=== PATIENT | female | born 1975 | race Caucasian/White ===

== ENCOUNTER 2023-06-09 15:20 | Outpatient (CLI) | payer BC | END 2023-06-09 15:21 | disposition home or self-care (01) | LOC: SCSRAD 15:20 | PROVIDERS: ATTEND Physician Assistant | DX: M47.22 Other spondylosis with radiculopathy, cervical region (principal) | CPT/HCPCS: 72040 ==

== ENCOUNTER 2023-07-21 19:27 | Inpatient (IN) | payer BC, SELFPAY ==
[2023-07-21] MEDS ORDERED: Ondansetron ODT 4 MG TAB PO PRN (19:49)
[2023-07-21] MEDS ORDERED: Acetaminophen 325 MG TAB PO PRN (19:49)
[2023-07-21 20:00] VITALS: BMI 24.5
[2023-07-21] MEDS: Morphine 4 MG/ML VIAL SLOW IVP PRN (20:04)
[2023-07-21] MEDS ORDERED: Dextrose 5% in Water 1,000 ML IV PRN (21:15)
[2023-07-21] MEDS ORDERED: Dextrose 50% Abboject 50 ML SYRINGE SLOW IVP PRN (21:15)
[2023-07-21] MEDS ORDERED: Glucagon 1 MG/ML KIT IM PRN (21:15)
[2023-07-21] MEDS: Ondansetron PF 4 MG/2 ML Vial IVP PRN (21:34)
[2023-07-21] MEDS: Ketorolac Tromethamine 30 MG/ML VIAL IVP PRN (22:59)
[2023-07-22] MEDS: Morphine 4 MG/ML VIAL SLOW IVP PRN ×6 (00:37→23:58)
[2023-07-22 01:11] LABS: #Basophils 0.1 thou/uL (0.0-0.2); #Eosinphils 0.4 thou/uL (0.0-0.7); #Monocytes 0.9 thou/uL (0.11-0.59); #Neutrophils 9.2 thou/uL (1.40-6.50); %Basophils 0.4 % (0.0-1.0); %Eosinophils 2.7 % (0.0-10.0); %Lymphocytes 18.6 % (21.0-51.0); %Monocytes 6.9 % (0.0-10.0); Hematocrit 39.2 % (36.0-47.0); Mean Corpuscular HGB CONC 33.2 g/dL (32.0-36.0); Mean Corpuscular Volume 96.6 fl (78.0-98.0); Platelet Count 278 10x3/uL (130-400); RBC Distribution Width 12.3 % (11.5-14.5); Red Blood Cell (RBC) Count 4.06 mill/uL (4.20-5.40)
[2023-07-22 01:33] LABS: Anion Gap 13 mmol/L (10-20); BUN (Urea Nitrogen) 11 mg/dL (7.0-18.7); Calc. Creatinine Clearance 98 mL/min (70-130); Calcium 8.6 mg/dL (7.8-10.44); Carbon Dioxide 26 mmol/L (22-29); Chloride 101 mmol/L (98-107); Estimated GFR 91; Glucose 111 mg/dL (70-105); Magnesium 1.9 mg/dL (1.6-2.6); Potassium 3.8 mmol/L (3.5-5.1); Sodium 136 mmol/L (136-145)
[2023-07-22] MEDS: Ketorolac Tromethamine 30 MG/ML VIAL IVP PRN (10:10)
[2023-07-22] MEDS: Ondansetron PF 4 MG/2 ML Vial IVP PRN (10:16)
[2023-07-22] MEDS ORDERED: BuPROPion XL 150 MG ER.TAB PO SCH (10:30)
[2023-07-22] MEDS ORDERED: Magnevist 469MG/ML 20 ML VIAL ONE (13:17)
[2023-07-22] MEDS: Cyclobenzaprine 10 MG TAB PO PRN ×2 (14:04→19:46)
[2023-07-22 14:16] LABS: ALT (SGPT) 12 U/L (8-55); AST (SGOT) 15 U/L (5-34); Albumin 4.1 g/dL (3.5-5.0); Alkaline Phosphatase 48 U/L (40-110); Anion Gap 11 mmol/L (10-20); BUN (Urea Nitrogen) 9 mg/dL (7.0-18.7); Bilirubin, Total 0.7 mg/dL (0.2-1.2); Calc. Creatinine Clearance 100 mL/min (70-130); Calcium 9.7 mg/dL (7.8-10.44); Carbon Dioxide 26 mmol/L (22-29); Chloride 99 mmol/L (98-107); Estimated GFR 94; Globulin 2.5 g/dL (2.4-3.5); Glucose 90 mg/dL (70-105); Potassium 4.3 mmol/L (3.5-5.1); Protein, Total 6.6 g/dL (6.0-8.3); Sodium 132 mmol/L (136-145)
[2023-07-22 14:18] LABS: Immunoglob - A (Total IgA) 187 mg/dL (65-421); Immunoglob - G (Total IgG) 727 mg/dL (552-1631); Immunoglob - M (Total IgM) 116 mg/dL (33-293)
[2023-07-22] MEDS ORDERED: Prochlorperazine 10 MG/2 ML VIAL IVP SCH (15:00)
[2023-07-22] MEDS ORDERED: Prochlorperazine Edisylate 10 MG in Sodium Chloride 0.9% 50 ML IVPB PRN (16:26)
[2023-07-22] MEDS: Gabapentin 300 MG CAP PO PRN (19:46)
[2023-07-23 03:51] LABS: #Eosinphils 0.4 thou/uL (0.0-0.7); #Monocytes 0.7 thou/uL (0.11-0.59); #Neutrophils 6.3 thou/uL (1.40-6.50); %Basophils 0.3 % (0.0-1.0); %Eosinophils 4.2 % (0.0-10.0); %Lymphocytes 20.8 % (21.0-51.0); %Monocytes 7.8 % (0.0-10.0); %Neutrophils 66.5 % (42.0-75.0); Hemoglobin 13.3 g/dL (12.0-16.0); Mean Corpuscular HGB CONC 33.3 g/dL (32.0-36.0); Mean Corpuscular Hemoglobin 32.3 pg (27.0-31.0); Mean Corpuscular Volume 97.1 fl (78.0-98.0); Mean Platelet Volume 8.2 fL (7.4-10.4); Platelet Count 291 10x3/uL (130-400); RBC Distribution Width 11.9 % (11.5-14.5); Red Blood Cell (RBC) Count 4.12 mill/uL (4.20-5.40); White Blood Cell (WBC) Count 9.4 10x3/uL (4.8-10.8)
[2023-07-23] MEDS: Morphine 4 MG/ML VIAL SLOW IVP PRN ×5 (03:58→19:02)
[2023-07-23 04:21] LABS: Anion Gap 11 mmol/L (10-20); BUN (Urea Nitrogen) 11 mg/dL (7.0-18.7); Calc. Creatinine Clearance 96 mL/min (70-130); Calcium 8.6 mg/dL (7.8-10.44); Carbon Dioxide 27 mmol/L (22-29); Chloride 100 mmol/L (98-107); Estimated GFR 90; Glucose 97 mg/dL (70-105); Potassium 3.9 mmol/L (3.5-5.1); Sodium 134 mmol/L (136-145)
[2023-07-23] MEDS: Cyclobenzaprine 10 MG TAB PO PRN (08:57)
[2023-07-23] MEDS: Gabapentin 300 MG CAP PO PRN (08:57)
[2023-07-23] MEDS: BuPROPion XL 150 MG ER.TAB PO SCH (08:58)
[2023-07-23] MEDS: tiZANidine HCl 4 MG TAB PO SCH ×2 (09:09→20:34)
[2023-07-23] MEDS: Gabapentin 300 MG CAP PO SCH ×3 (09:10→20:34)
[2023-07-23] MEDS ORDERED: Ketorolac Tromethamine 30 MG/ML VIAL IVP SCH (09:15)
[2023-07-23] MEDS ORDERED: NS 0.9% w/ 20 MEQ KCL 1,000 ML/1,000 ML BAG IV SCH (09:15)
[2023-07-23] MEDS ORDERED: Magnevist 469MG/ML 20 ML VIAL ONE (09:34)
[2023-07-23 12:03] LABS: Bilirubin Negative (Negative); Blood, Urine Trace (Negative); CAUTI Indications for Culture Dysuria,urgency,freq; Clarity Turbid (Clear); Glucose, Urine (Dipstick) Normal (Negative); Ketone, Urine Negative (Negative); Leukocyte 500 Leu/uL (Negative); Nitrite Negative (Negative); Protein, Urine (Dipstick) Negative (Neg-Trace); Specific Gravity, Urine 1.011 (1.002-1.036); Squamous Epithelial 0-3 HPF (0-3); Urobilinogen Normal mg/dL (Less than 2); WBC/HPF Greater than 50 HPF (0-3)
[2023-07-23 12:28] LABS: Bacteria/HPF 1+ HPF (None Seen); Urine Culture Reflex Yes Yes
[2023-07-23] MEDS: cefTRIAXone\\ROCEPHIN 1 GM in Sodium Chloride 0.9% 100 ML IVPB SCH (15:40)
[2023-07-23] MEDS: Ketorolac Tromethamine 30 MG/ML VIAL IVP PRN (19:36)
[2023-07-23] MEDS: HYDROcodone/Acetaminophen 5/325 mg Tablet PO PRN (19:37)
[2023-07-24] MEDS: HYDROcodone/Acetaminophen 5/325 mg Tablet PO PRN ×2 (05:18→14:22)
[2023-07-24 06:07] LABS: INR-International Normal Ratio 0.9; Prothrombin Time 12.6 sec (12.0-14.7)
[2023-07-24 06:20] LABS: #Basophils 0.1 thou/uL (0.0-0.2); #Eosinphils 0.4 thou/uL (0.0-0.7); #Monocytes 0.7 thou/uL (0.11-0.59); #Neutrophils 4.3 thou/uL (1.40-6.50); %Basophils 0.7 % (0.0-1.0); %Eosinophils 5.5 % (0.0-10.0); %Lymphocytes 26.9 % (21.0-51.0); %Monocytes 9.2 % (0.0-10.0); %Neutrophils 57.3 % (42.0-75.0); Hematocrit 41.9 % (36.0-47.0); Hemoglobin 13.6 g/dL (12.0-16.0); Mean Corpuscular HGB CONC 32.5 g/dL (32.0-36.0); Mean Corpuscular Hemoglobin 31.7 pg (27.0-31.0); Mean Corpuscular Volume 97.7 fl (78.0-98.0); Mean Platelet Volume 8.3 fL (7.4-10.4); Platelet Count 296 10x3/uL (130-400); RBC Distribution Width 11.9 % (11.5-14.5); Red Blood Cell (RBC) Count 4.29 mill/uL (4.20-5.40); White Blood Cell (WBC) Count 7.5 10x3/uL (4.8-10.8)
[2023-07-24 06:25] LABS: Anion Gap 12 mmol/L (10-20); BUN (Urea Nitrogen) 11 mg/dL (7.0-18.7); Calc. Creatinine Clearance 95 mL/min (70-130); Calcium 8.8 mg/dL (7.8-10.44); Carbon Dioxide 27 mmol/L (22-29); Chloride 103 mmol/L (98-107); Estimated GFR 89; Glucose 82 mg/dL (70-105); Potassium 4.3 mmol/L (3.5-5.1); Sodium 138 mmol/L (136-145)
[2023-07-24] MEDS: tiZANidine HCl 4 MG TAB PO SCH ×2 (08:43→20:05)
[2023-07-24] MEDS: Gabapentin 300 MG CAP PO SCH ×3 (08:43→20:04)
[2023-07-24] MEDS: BuPROPion XL 150 MG ER.TAB PO SCH (08:44)
[2023-07-24] MEDS: Ketorolac Tromethamine 30 MG/ML VIAL IVP PRN (10:59)
[2023-07-24] MEDS: Morphine 4 MG/ML VIAL SLOW IVP PRN (11:03)
[2023-07-24] MEDS: cefTRIAXone\\ROCEPHIN 1 GM in Sodium Chloride 0.9% 100 ML IVPB SCH (14:14)
[2023-07-24] MEDS ORDERED: Polyethylene Glycol 3350 17 GM Packet PO SCH (18:15)
[2023-07-24] MEDS: Senokot S 8.6-50 MG TAB PO SCH (20:05)
[2023-07-25 05:27] LABS: #Eosinphils 0.5 thou/uL (0.0-0.7); #Monocytes 0.8 thou/uL (0.11-0.59); #Neutrophils 3.5 thou/uL (1.40-6.50); %Basophils 0.6 % (0.0-1.0); %Eosinophils 7.3 % (0.0-10.0); %Lymphocytes 27.5 % (21.0-51.0); %Monocytes 12.2 % (0.0-10.0); %Neutrophils 51.5 % (42.0-75.0); Hematocrit 39.5 % (36.0-47.0); Hemoglobin 13.1 g/dL (12.0-16.0); Mean Corpuscular HGB CONC 33.2 g/dL (32.0-36.0); Mean Corpuscular Hemoglobin 31.9 pg (27.0-31.0); Mean Corpuscular Volume 96.1 fl (78.0-98.0); Mean Platelet Volume 8.2 fL (7.4-10.4); Platelet Count 276 10x3/uL (130-400); RBC Distribution Width 11.7 % (11.5-14.5); Red Blood Cell (RBC) Count 4.11 mill/uL (4.20-5.40); White Blood Cell (WBC) Count 6.7 10x3/uL (4.8-10.8)
[2023-07-25 05:54] LABS: Anion Gap 10 mmol/L (10-20); BUN (Urea Nitrogen) 11 mg/dL (7.0-18.7); Calc. Creatinine Clearance 107 mL/min (70-130); Calcium 8.7 mg/dL (7.8-10.44); Carbon Dioxide 26 mmol/L (22-29); Chloride 106 mmol/L (98-107); Estimated GFR 102; Glucose 79 mg/dL (70-105); Sodium 138 mmol/L (136-145)
[2023-07-25] MEDS ORDERED: Polyethylene Glycol 3350 17 GM Packet PO SCH (09:00)
[2023-07-25] MEDS: HYDROcodone/Acetaminophen 5/325 mg Tablet PO PRN (09:30)
[2023-07-25] MEDS: Ketorolac Tromethamine 30 MG/ML VIAL IVP PRN (09:30)
[2023-07-25] MEDS: tiZANidine HCl 4 MG TAB PO SCH (09:34)
[2023-07-25] MEDS: Gabapentin 300 MG CAP PO SCH (09:34)
[2023-07-25] MEDS: Senokot S 8.6-50 MG TAB PO SCH (09:34)
[2023-07-25] MEDS: BuPROPion XL 150 MG ER.TAB PO SCH (09:34)
[2023-07-25 11:39] VITALS: BP 123/81; TEMP 97.9
[2023-07-25] MEDS: cefTRIAXone\\ROCEPHIN 1 GM in Sodium Chloride 0.9% 100 ML IVPB SCH (11:52)
[2023-07-25 17:37] LABS: IgA - Total IgA (Sendout) 214 mg/dL (87-352); Immunoglobulin - G (Sendout) 737 mg/dL (586-1602); Immunoglobulin - M (Sendout) 111 mg/dL (26-217)
== END 2023-07-25 13:25 | disposition home or self-care (01) | DRG 565 ==
LOC: 2SE 19:29 → INTOOBSV 19:29 → OBSVTOIN 07-23 16:39 → MSONC 07-23 18:49
PROVIDERS: ADMIT Internal Medicine; ATTEND Family Medicine
DX: M89.9 Disorder of bone, unspecified (principal); N39.0 Urinary tract infection, site not specified; E16.2 Hypoglycemia, unspecified; M50.123 Cervical disc disorder at C6-C7 level with radiculopathy; M48.02 Spinal stenosis, cervical region; F10.90 Alcohol use, unspecified, uncomplicated; R30.0 Dysuria; R42 Dizziness and giddiness; H53.8 Other visual disturbances; B96.20 Unspecified Escherichia coli [E. coli] as the cause of diseases classified elsewhere; Z98.51 Tubal ligation status; Z80.0 Family history of malignant neoplasm of digestive organs; Z80.8 Family history of malignant neoplasm of other organs or systems; Z82.49 Family history of ischemic heart disease and other diseases of the circulatory system
CPT/HCPCS: 36415; 36416; 70553; 71260; 72156; 72157; 74177; 78306; 80048; 81001; 83735; 85025; 85610; 86334; 87077; 87086; 87186; 96374; 96375; 96376; A9503; A9579; G0378; J0696; J0780; J1885; J2270; J2405; J3480; J3490